=== PATIENT | female | born 1960 | race Caucasian/White ===

== ENCOUNTER 2021-09-19 14:44 | Outpatient (CLI) | payer MEDICARE, SELFPAY ==
--- NOTE | 2021-09-19 14:30 | XR_ITS ---
WS: [id number] Exam: XR KUB [id number] Date/Time of Exam: 09/19/2021 2:30 PM Reason For Exam: NEPHROLITHIASIS Comparison 11/03/2008. No bowel obstruction or free air. No sign of organ enlargement. No calcifications are projected over the renal silhouettes. A vascular stent is noted along the left margin of the L4 vertebra. Nonspecifi c bilateral pelvic calcifications. Bony structures are intact. XR/XR KUB [id number] IMPRESSION: 1. No acute abdominal finding. 2. Additional minor nonemergent findings.
== END 2021-09-19 14:45 | disposition home or self-care (01) ==
PROVIDERS: PCP Physician Assistant; Visit Provider Urology
DX: N20.0 Calculus of kidney (principal)
CPT/HCPCS: 74018; 81003; 87086

== ENCOUNTER → 2021-10-24 09:12 | Outpatient (BNVA) | payer MEDICARE, SELFPAY | PROVIDERS: PCP Physician Assistant; Visit Provider Urology | DX: N39.0 Urinary tract infection, site not specified (principal) | CPT/HCPCS: 81003 ==

== ENCOUNTER → 2022-01-23 08:08 | Outpatient (BNVA) | payer MEDICARE, SELFPAY | PROVIDERS: PCP Physician Assistant; Visit Provider Urology | DX: N39.0 Urinary tract infection, site not specified (principal) | CPT/HCPCS: 81003 ==

== ENCOUNTER → 2022-03-27 14:26 | Outpatient (BNVA) | payer MEDICARE, SELFPAY | PROVIDERS: PCP Physician Assistant; Visit Provider Urology | DX: N20.0 Calculus of kidney (principal); N39.0 Urinary tract infection, site not specified; R31.0 Gross hematuria | CPT/HCPCS: 81003; 99214 ==

== ENCOUNTER → 2022-06-24 14:09 | Outpatient (BNVA) | payer MEDICARE, SELFPAY | PROVIDERS: PCP Physician Assistant; Visit Provider Urology | DX: N20.0 Calculus of kidney (principal); N30.80 Other cystitis without hematuria | CPT/HCPCS: 99213 ==

== ENCOUNTER → 2022-07-10 08:44 | Outpatient (BNVA) | payer MEDICARE, SELFPAY | PROVIDERS: PCP Physician Assistant; Visit Provider Urology | DX: N39.0 Urinary tract infection, site not specified (principal); N30.80 Other cystitis without hematuria; N20.0 Calculus of kidney | CPT/HCPCS: 81003 ==

== ENCOUNTER → 2022-09-30 09:49 | Outpatient (BNVA) | payer MEDICARE, SELFPAY | PROVIDERS: PCP Physician Assistant; Visit Provider Urology | DX: N30.80 Other cystitis without hematuria (principal) | CPT/HCPCS: 81003; 99213 ==

== ENCOUNTER → 2022-12-16 09:43 | Outpatient (BNVA) | payer MEDICARE, SELFPAY | PROVIDERS: PCP Physician Assistant; Visit Provider Urology | DX: N30.80 Other cystitis without hematuria (principal) | CPT/HCPCS: 99213 ==

== ENCOUNTER 2025-04-04 08:54 | Emergency (ER) | payer MEDICARE, SELFPAY ==
[2025-04-04 08:55] VITALS: BP 113/78; PULSE 79; RESP 17; TEMP 36.5; O2SAT 96; BMI 28.5
--- NOTE | 2025-04-04 09:10 | ED_ITS ---
Documented by User: NESSA Spears 04/04/25 13:42 HPI - Neuro Symptoms/Deficit 2 General: Chief Complaint: Neuro Symptoms/Deficit Stated Complaint: Weakness, Headache Time Seen by Provider: 04/04/25 08:57 Source: patient and other (assisted report) Mode of arrival: EMS Limitations: no limitations History of Present Illness: Patient is a 65-year-old female presents to ED today from her assisted for evaluation of worsening strokelike symptoms. Patient states she had a stroke on March 01 and then had another stroke following this. Both strokes are managed at [facility] in [place] and we currently do not have these records. According to assisted report, patient does have residual left-sided deficits from these. She was living at home prior to the CVAs but is now residing in a assisted. According to assisted report, she does have some residual left facial droop, slurred speech, and left-sided weakness. [facility] staff states she was reportedly at her normal/baseline since the CVAs around 0750 this morning but then began complaining of an acute onset headache in assisted staff noted that her stroke symptoms on the left had acutely worsened. Patient is unsure whether she received TNK while at [facility]. I directly spoke to Gwen at patient's assisted who confirms patient has had left sided facial droop, left arm/leg weakness, slurred speech, and problems with balance since they've had her. She has also had issues with headaches. They said headache was worse this morning and her deficits seemed worse. She does not report any new symptoms-possibly her gait was worse than normal. Daughter later showed up and provided further history. She confirms two previous strokes within the last month-neither one of which were in the window for TNK. She states she was with her mother around 0650 this morning and witnessed her walk to the cafeteria at [facility] and was fairly stable at that time. Daughter felt like her residual deficits were at baseline then. She is with her now in the ED and feels her speech is more slurred and aphasic that what it was at 0650 this morning and states her gait is certainly worse stating that she is very wobbly just like she was when she had her second stroke . Onset (ago): hour(s) Timing confirmed by: other (assisted staff) Location: speech, left face, left arm, left leg and ataxia History of same: Yes Severity: severe Relieving factors: none Exacerbating factors: none Associated symptoms: Reports headache(s); Deny chest pain, malaise or vomiting Treatments Prior to Arrival: none Related Data Home Medications ?Medication ?Instructions ?Recorded ?Confirmed montelukast 10 mg tablet 10 mg PO QDAY 11/04/1904/04 (Singulair) magnesium 250 mg tablet 250 mg PO DAILY 09/19/21 amlodipine 2.5 mg tablet 2.5 mg PO DAILY 10/24/21 aspirin 81 mg tablet,delayed 81 mg PO DAILY 10/24/21 0 04/04/25 release metoprolol succinate 50 mg 50 mg PO DAILY 10/24/21 tablet,extended release 24 hr acetaminophen 650 mg 650 mg PO Q6H 04/04/2504/04 tablet,extended release (Tylenol 8 Hour) atorvastatin 80 mg tablet 80 mg PO DAILY 04/04/2503/13 clopidogrel 75 mg tablet 75 mg PO DAILY 04/04/2503/13 meclizine 25 mg tablet 25 mg PO Q8H PRN Dizziness O r 04/04/25 04/04/25 Vertigo pantoprazole 40 mg tablet,delayed 40 mg PO DAILY 04/0404/04/25 release pioglitazone 30 mg tablet 30 mg PO DAILY 04/04/2503/13 ropinirole 0.5 mg tablet 0.5 mg PO BEDTIME 04/04/25 0 04/04/25 vitamin B complex-folic acid ER 1 tab PO DAILY 5 04/04/25 400 mcg tablet,extended release Allergies Allergy/AdvReac Type Severity Reaction Status Date / Time NSAIDS (Non-Steroidal Allergy Unknown UNKNOWN Verified 12/16/22 09:54 Anti-Inflamma acetaminophen (From Fioricet) Allergy ITCHING, Verified 12/16/22 09:54 REDNESS, SWELLING albuterol Allergy ITCHING, Verified 12/16/22 09:54 REDNESS, SWELLING benzonatate (From Tessalon Allergy ITCHING, Verified 12/16/22 09:54 Perles) REDNESS, SWELLING butalbital (From Fioricet) Allergy ITCHING, Verified 12/16/22 09:54 REDNESS, SWELLING caffeine (From Fioricet) Allergy ITCHING, Verified 12/16/22 09:54 REDNESS, SWELLING celecoxib (From Celebrex) Allergy ITCHING, Verified 12/16/22 09:54 REDNESS, SWELLING cephalexin (From Keflex) Allergy ITCHING, Verified 12/16/22 09:54 REDNESS, SWELLING codeine Allergy Unknown Verified 12/16/22 09:54 diphenhydramine (From Allergy REDNESS Verified 12/16/22 09:54 Benadryl) AND ITCHING ezetimibe (From Zetia) Allergy ITCHING, Verified 12/16/22 09:54 REDNESS, SWELLING gabapentin Allergy ITCHING, Verified 12/16/22 09:54 REDNESS, SWELLING gemfibrozil Allergy ITCHING, Verified 12/16/22 09:54 REDNESS, SWELLING ibuprofen Allergy ITCHING Verified 12/16/22 09:54 ipratropium Allergy ITCHING, Verified 12/16/22 09:54 REDNESS, SWELLING ketorolac Allergy ITCHING, Verified 12/16/22 09:54 REDNESS, SWELLING latex Allergy ITCHING, Verified 12/16/22 09:54 REDNESS, SWELLING lidocaine Allergy ITCHING, Verified 12/16/22 09:54 REDNESS, SWELLING morphine Allergy SWELLING Verified 12/16/22 09:54 nitroglycerin Allergy ITCHING, Verified 12/16/22 09:54 REDNESS, SWELLING ondansetron (From Zofran) Allergy ITCHING, Verified 12/16/22 09:54 REDNESS, SWELLING oxycodone Allergy ITCHING, Verified 12/16/22 09:54 REDNESS, SWELLING prednisolone Allergy SWELLING Verified 12/16/22 09:54 AND REDNESS procaine (From Novocain) Allergy ITCHING, Verified 12/16/22 09:54 REDNESS, SWELLING rosuvastatin (From Crestor) Allergy ITCHING, Verified 12/16/22 09:54 REDNESS, SWELLING tramadol Allergy ITCHING, Verified 12/16/22 09:54 REDNESS, SWELLING venlafaxine (From Effexor) Allergy ITCHING, Verified 12/16/22 09:54 REDNESS, SWELLING Review of Systems 2 Const: Denies: fever(s), chills, body aches, fatigue or malaise Card: Denies: chest pain Resp: Denies: dyspnea GI: Denies: abdominal pain, vomiting or diarrhea : Denies: flank pain, dysuria or hematuria Musc: Denies: neck pain, back pain, extremity pain, extremity swelling, joint pain or joint swelling Skin/Breast: Denies: rash Neuro: Reports: headache(s), weakness in extremities, lack of coordination, difficulty walking and Slurred speech present; Denies: confusion, behavioral changes, difficulty communicating thoughts or seizure-like activity PFSH ED 2 PFSH: Medical History Nephrolithiasis Gross hematuria Recurrent UTI Long history of RUTIs c/w CHRONIC CYSTITIS Family History Father , AT AGE 53 Heart disease Mother , AT 59 Acute Crohn's disease Other Acute rheumatoid arthritis Crohn's disease Social History Smoking and tobacco/nicotine status: current every day tobacco/nicotine user cigarettes Packs smoked per day: 1 Quit status (tobacco/nicotine): not considering quitting Alcohol intake: never Substance/Drug Use: never Marital status: / Current occupational status: disabled NIH stroke score 2 NIHSS: Level Of Consciousness - 1a: 0 Level Of Consciousness Questions - 1b: Both Correct Level Of Consciousness Commands - 1c: Both Correct Best Gaze - 2: Normal Visual Antony - 3: No Visual Loss Facial Palsy - 4: Minor Paralysis Motor Arm Right - 5: No Drift Motor Arm Left - 5: No 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 Pantoja-coming to evaluate patient here in ED; we are still awaiting records from [facility] Vital Signs: Vital signs: Vital Signs Temperature 97.7 F 04/04/25 08:55 Pulse Rate 69 04/04/25 14:06 Respiratory Rate 16 04/04/25 14:04 Blood Pressure 128/75 04/04/25 14:06 Pulse Oximetry 96 04/04/25 14:06 Oxygen Delivery Me thod Room Air 04/04/25 14:04 MDM - Neuro Symptoms/Deficit Medical Decision Making Patient's care is difficult as she does have obvious left-sided deficits from previous CVAs. It is hard to differentiate if patient has any new focal deficits or if this is just an increase of her residual deficits possibly due to dehydration, infection, not sleeping well, etc. She will not be a TNK candidate given her severe stroke within the last month. I have spoken to Dr. New on her and we will go ahead and call a stroke alert and have Dr. Pantoja come evaluate her as I appreciate her evaluation and insight into appropriate management here. We are still awaiting [facility] records despite having called them twice. Dr. Pantoja did consult on patient. She is not a candidate for TNK. Patient is already wearing a monitor to evaluate for atrial fibrillation. She is already at a nursing/assisted living facility and receiving physical therapy. She already has neurology follow-up scheduled for April 12. Dr. Pantoja was graciously willing to work her into her clinic here however family would like to continue follow-up at [facility]. Dr. Pantoja reviewed CT head and CTA head and neck performed on today's visit. Patient is already on plavix/statin. Medical Records I reviewed the patient's medical records. Lab Data I reviewed the patient's lab results. 04/04/25 09:26 04/04/25 09:26 Radiology Impressions Chest X-Ray 04/04/25 09:14 IMPRESSION: 1. Negative chest. Head CT 04/04/25 09:14 IMPRESSION: 1. Focal area of decreased attenuation RIGHT paramedial frontal lobe abutting the corpus callosum measures 1.6 x 2.4 cm. Slight extension across the midline. Neoplasm needs to be excluded. Patient does have a history of prior recent infarcts. No comparison studies at [facility]. 2. High density focus measuring 4.3 mm in the mid anterior corpus callosum needs to be further evaluated. Neoplasm, blood or primary lymphoma should be considered. 3. Recommend MRI brain with and without contrast. Head/Neck CTA 04/04/25 10:09 IMPRESSION: 1. No high-grade cervical carotid artery stenosis. Less than 50% stenosis cervical carotid arteries. 2. Diffuse narrowing of the RIGHT vertebral artery. This may be normal congenital variation for this patient but dissection should be considered due to ongoing history of multiple recent strokes. No evidence for luminal thrombus identified surrounding the artery by CT. RIGHT vertebral artery can be further evaluated by carotid ultrasound to evaluate for an intimal flap or MR angiogram carotid arteries. 3. No alturas of [place] occlusion or aneurysm. Laboratory Results WBC 8.84 10^3/uL (3.29-11.43) 04/04/25 09: RBC 4.51 10^6/uL (3.85-5.65) 04/04/25 09:26 Hgb 14.70 g/dL (11.27-16.99) 04/04/25 09:26 Hct 43.4 % (36-47) 04/04/25 09: MCV 96.2 fl (85-98) 04/04/25 09: MCH 32.6 pg (27-33) 04/04/25 09: MCHC 33.9 g/dL (30-55) 04/04/25 09: RDW 11.9 % (12.1-15.1) L 04/04/25 09:26 Plt Count 268 10^3/cmm (157-399) 04/04/25 09: MPV 8.6 fL (7.4-10.4) 04/04/25 09: Neut % (Auto) 62.9 % 04/04/25 09: Lymph % (Auto) 19.7 % 04/04/25 09:26 [place] % (Auto) 12.8 % 04/04/25 09: Eos % (Auto) 3.1 % 04/04/25: Baso % (Auto) 0.8 % 04/04/25 09: Neut # (Auto) 5.57 10^3/uL (1.8-7.7) 04/04/25 09:26 Lymph # (Auto) 1.7 10^3/uL (0.8-4.8) 04/04/25 09: [place] # (Auto) 1.1 10^3/uL (0.2-0.9) H 04/04/25 09:26 Eos # (Auto) 0.3 10^3/uL (0.0-0.8) 04/04/25 09:26 Baso # (Auto) 0.1 10^3/uL (0.0-0.1) 04/04/25 09:26 Nucleated RBC % (auto) 0 % 04/04/25 09:26 Nucleated RBCs # 0.0 /100WBC 04/04/25 09:26 Sodium 140 mmol/L (136-145) 04/04/25 09:26 Potassium 4.0 mmol/L (3.5-5.1) 04/04/25 09:26 Chloride 101 mmol/L (98-107) 04/04/25 09:26 Carbon Dioxide 28 mmol/L (22-29) 04/04/25 09:26 Anion Gap 15.0 (5-19) 04/04/25 09:26 BUN 13 mg/dL (8-23) 04/04/25 09:26 Creatinine 0.6 mg/dL (0.5-0.9) 04/04/25 09:26 GFR Calculation 101.0 mL/min (90-130) 04/04/25 09:26 Glucose 200 mg/dL (65-115) H 04/04/25 09:26 Calculated Osmolality 296 mOsm/kg (285-295) H 04/04/25 09:26 Calcium 9.2 mg/dL (8.5-10.5) 04/04/25 09:26 Total Bilirubin 1.7 mg/dL (0.15-1.2) H 04/04/25 09:26 AST 17 U/L (0-32) 04/04/25 09:26 ALT 30 U/L (0-33) 04/04/25 09:26 Alkaline Phosphatase 69 U/L (35-105) 04/04/25 09:26 Total Protein 6.3 g/dL (6.6-8.7) L 04/04/25 09:26 Albumin 3.9 g/dL (3.5-5.2) 04/04/25 09:26 Globulin 2.4 g/dL (1.3-4.6) 04/04/25 09:26 Urine Color Yellow (Yellow) 04/04/25 11:50 Urine Appearance Clear (CLEAR) 04/04/25 11:50 Urine pH 7.0 (5-7) 04/04/25 11:50 Ur Specific [place] 1.068 (1.005-1.030) H 04/04/25 11:50 Urine Protein Negative (Negative) 04/04/25 11:50 Urine Glucose (UA) Negative (Normal) 04/04/25 11:50 Urine Ketones Negative (Negative) 04/04/25 11:50 Urine Blood Negative (Negative) 04/04/25 11:50 Urine Nitrate Negative (Negative) 04/04/25 11:50 Urine Bilirubin Negative (Negative) 04/04/25 11:50 Urine Urobilinogen 0.2 mg/dL (Negative) 04/04/25 11:50 Ur Leukocyte Esterase Negative (Negative) 04/04/25 11:50 Urine RBC 0-2 /hpf (0-2) 04/04/25 11:50 Urine WBC 0-5 /hpf (0-5) 04/04/25 11:50 Ur Squamous Epith Cells 0-5 /hpf (0-5) 04/04/25 11:50 Amorphous Sediment Not Reportable 04/04/25 11:50 Urine Bacteria None seen /hpf (NONE) 04/04/25 11:50 Hyaline Casts 0.40 /lpf 04/04/25 11:50 All radiology interpretation(s) finalized by discharge Discharge Plan Discharge Patient Disposition: Home Clinical Impression: Acute right arterial ischemic stroke, middle cerebral artery (MCA) Condition: Stable Prescriptions: No Action montelukast [Singulair] 10 mg tablet 10 mg PO QDAY amlodipine 2.5 mg tablet 2.5 mg PO DAILY aspirin 81 mg tablet,delayed release (DR/EC) 81 mg PO DAILY metoprolol succinate 50 mg tablet extended release 24 hr 50 mg PO DAILY magnesium 250 mg tablet 250 mg PO DAILY atorvastatin 80 mg tablet 80 mg PO DAILY clopidogrel 75 mg Tablet 75 mg PO DAILY acetaminophen [Tylenol 8 Hour] 650 mg Tablet Extended Release 650 mg PO Q6H meclizine 25 mg Tablet 25 mg PO Q8H PRN (Reason: Dizziness Or Vertigo) pantoprazole 40 mg Tablet,Delayed Release (Dr/Ec) 40 mg PO DAILY ropinirole 0.5 mg Tablet 0.5 mg PO BEDTIME pioglitazone 30 mg Tablet 30 mg PO DAILY vitamin B complex-folic acid 400 mcg Tablet Extended Release 1 tab PO DAILY Discharge Orders: Discharge ED (Routine); Ordered 04/04/25 Ordered By: Jojo Solis Referrals: Jocelynn Hutson PA-C [Primary Care Provider, Unknown] Patient Instructions: Patient Portal & Annette Instructions Activity Restrictions/Additional Instructions: As we discussed, you would not like to follow-up with neurology here. You would like to keep your appointment at [facility] scheduled for early April. Print Language: Prydeinig Coding Level of Care Code ED Senior Counsel for Chg Fwd Documented by User: Sharad New, 04/04/25 16:13 HPI - Neuro Symptoms/Deficit 2 General: Chief Complaint: Neuro Symptoms/Deficit Stated Complaint: Weakness, Headache Time Seen by Provider: 04/04/25 08:57 Related Data Home Medications ?Medication ?Instructions ?Recorded ?Confirmed montelukast 10 mg tablet 10 mg PO QDAY 11/04/1904/04 (Singulair) magnesium 250 mg tablet 250 mg PO DAILY 09/19/21 amlodipine 2.5 mg tablet 2.5 mg PO DAILY 10/24/21 aspirin 81 mg tablet,delayed 81 mg PO DAILY 10/24/21 0 04/04/25 release metoprolol succinate 50 mg 50 mg PO DAILY 10/24/21 tablet,extended release 24 hr acetaminophen 650 mg 650 mg PO Q6H 04/04/2504/04 tablet,extended release (Tylenol 8 Hour) atorvastatin 80 mg tablet 80 mg PO DAILY 04/04/2503/13 clopidogrel 75 mg tablet 75 mg PO DAILY 04/04/2503/13 meclizine 25 mg tablet 25 mg PO Q8H PRN Dizziness O r 04/04/25 04/04/25 Vertigo pantoprazole 40 mg tablet,delayed 40 mg PO DAILY 04/0404/04/25 release pioglitazone 30 mg tablet 30 mg PO DAILY 04/04/2503/13 ropinirole 0.5 mg tablet 0.5 mg PO BEDTIME 04/04/25 0 04/04/25 vitamin B complex-folic acid ER 1 tab PO DAILY 5 04/04/25 400 mcg tablet,extended release Allergies Allergy/AdvReac Type Severity Reaction Status Date / Time NSAIDS (Non-Steroidal Allergy Unknown UNKNOWN Verified 12/16/22 09:54 Anti-Inflamma acetaminophen (From Fioricet) Allergy ITCHING, Verified 12/16/22 09:54 REDNESS, SWELLING albuterol Allergy ITCHING, Verified 12/16/22 09:54 REDNESS, SWELLING benzonatate (From Tessalon Allergy ITCHING, Verified 12/16/22 09:54 Perles) REDNESS, SWELLING butalbital (From Fioricet) Allergy ITCHING, Verified 12/16/22 09:54 REDNESS, SWELLING caffeine (From Fioricet) Allergy ITCHING, Verified 12/16/22 09:54 REDNESS, SWELLING celecoxib (From Celebrex) Allergy ITCHING, Verified 12/16/22 09:54 REDNESS, SWELLING cephalexin (From Keflex) Allergy ITCHING, Verified 12/16/22 09:54 REDNESS, SWELLING codeine Allergy Unknown Verified 12/16/22 09:54 diphenhydramine (From Allergy REDNESS Verified 12/16/22 09:54 Benadryl) AND ITCHING ezetimibe (From Zetia) Allergy ITCHING, Verified 12/16/22 09:54 REDNESS, SWELLING gabapentin Allergy ITCHING, Verified 12/16/22 09:54 REDNESS, SWELLING gemfibrozil Allergy ITCHING, Verified 12/16/22 09:54 REDNESS, SWELLING ibuprofen Allergy ITCHING Verified 12/16/22 09:54 ipratropium Allergy ITCHING, Verified 12/16/22 09:54 REDNESS, SWELLING ketorolac Allergy ITCHING, Verified 12/16/22 09:54 REDNESS, SWELLING latex Allergy ITCHING, Verified 12/16/22 09:54 REDNESS, SWELLING lidocaine Allergy ITCHING, Verified 12/16/22 09:54 REDNESS, SWELLING morphine Allergy SWELLING Verified 12/16/22 09:54 nitroglycerin Allergy ITCHING, Verified 12/16/22 09:54 REDNESS, SWELLING ondansetron (From Zofran) Allergy ITCHING, Verified 12/16/22 09:54 REDNESS, SWELLING oxycodone Allergy ITCHING, Verified 12/16/22 09:54 REDNESS, SWELLING prednisolone Allergy SWELLING Verified 12/16/22 09:54 AND REDNESS procaine (From Novocain) Allergy ITCHING, Verified 12/16/22 09:54 REDNESS, SWELLING rosuvastatin (From Crestor) Allergy ITCHING, Verified 12/16/22 09:54 REDNESS, SWELLING tramadol Allergy ITCHING, Verified 12/16/22 09:54 REDNESS, SWELLING venlafaxine (From Effexor) Allergy ITCHING, Verified 12/16/22 09:54 REDNESS, SWELLING PFSH ED 2 PFSH: Medical History Nephrolithiasis Gross hematuria Recurrent UTI Long history of RUTIs c/w CHRONIC CYSTITIS Family History Father , AT AGE 53 Heart disease Mother , AT 59 Acute Crohn's disease Other Acute rheumatoid arthritis Crohn's disease Social History Smoking and tobacco/nicotine status: current every day tobacco/nicotine user cigarettes Packs smoked per day: 1 Quit status (tobacco/nicotine): not considering quitting Alcohol intake: never Substance/Drug Use: never Marital status: / Current occupational status: disabled NIH stroke score 2 Score: Total Score: 7 Course 2 Vital Signs: Vital signs: Vital Signs Temperature 97.7 F 04/04/25 08:55 Pulse Rate 69 04/04/25 14:06 Respiratory Rate 16 04/04/25 14:04 Blood Pressure 128/75 04/04/25 14:06 Pulse Oximetry 96 04/04/25 14:06 Oxygen Delivery Me thod Room Air 04/04/25 14:04 MDM - Neuro Symptoms/Deficit Medical Decision Making Patient's care is difficult as she does have obvious left-sided deficits from previous CVAs. It is hard to differentiate if patient has any new focal deficits or if this is just an increase of her residual deficits possibly due to dehydration, infection, not sleeping well, etc. She will not be a TNK candidate given her severe stroke within the last month. I have spoken to Dr. New on her and we will go ahead and call a stroke alert and have Dr. Pantoja come evaluate her as I appreciate her evaluation and insight into appropriate management here. We are still awaiting [facility] records despite having called them twice. Dr. Pantoja did consult on patient. She is not a candidate for TNK. Patient is already wearing a monitor to evaluate for atrial fibrillation. She is already at a nursing/assisted living facility and receiving physical therapy. She already has neurology follow-up scheduled for April 12. Dr. Pantoja was graciously willing to work her into her clinic here however family would like to continue follow-up at [facility]. Dr. Pantoja reviewed CT head and CTA head and neck performed on today's visit. Patient is already on plavix/statin. Chart reviewed and patient discussed with midlevel. Agree with assessment and plan. Lab Data 04/04/25 09:26 04/04/25 09:26 Radiology Impressions Chest X-Ray 04/04/25 09:14 IMPRESSION: 1. Negative chest. Head CT 04/04/25 09:14 IMPRESSION: 1. Focal area of decreased attenuation RIGHT paramedial frontal lobe abutting the corpus callosum measures 1.6 x 2.4 cm. Slight extension across the midline. Neoplasm needs to be excluded. Patient does have a history of prior recent infarcts. No comparison studies at [facility]. 2. High density focus measuring 4.3 mm in the mid anterior corpus callosum needs to be further evaluated. Neoplasm, blood or primary lymphoma should be considered. 3. Recommend MRI brain with and without contrast. Head/Neck CTA 04/04/25 10:09 IMPRESSION: 1. No high-grade cervical carotid artery stenosis. Less than 50% stenosis cervical carotid arteries. 2. Diffuse narrowing of the RIGHT vertebral artery. This may be normal congenital variation for this patient but dissection should be considered due to ongoing history of multiple recent strokes. No evidence for luminal thrombus identified surrounding the artery by CT. RIGHT vertebral artery can be further evaluated by carotid ultrasound to evaluate for an intimal flap or MR angiogram carotid arteries. 3. No alturas of [place] occlusion or aneurysm. Laboratory Results WBC 8.84 10^3/uL (3.29-11.43) 04/04/25 09: RBC 4.51 10^6/uL (3.85-5.65) 04/04/25 09:26 Hgb 14.70 g/dL (11.27-16.99) 04/04/25 09: Hct 43.4 % (36-47) 04/04/25 09:26 MCV 96.2 fl (85-98) 04/04/25 09: MCH 32.6 pg (27-33) 04/04/25 09: MCHC 33.9 g/dL (30-55) 04/04/25 09: RDW 11.9 % (12.1-15.1) L 04/04/25 09: Plt Count 268 10^3/cmm (157-399) 04/04/25 09: MPV 8.6 fL (7.4-10.4) 04/04/25 09:26 Neut % (Auto) 62.9 % 04/04/25 09: Lymph % (Auto) 19.7 % 04/04/25 09: [place] % (Auto) 12.8 % 04/04/25 09: Eos % (Auto) 3.1 % 04/04/25 09: Baso % (Auto) 0.8 % 04/04/25 09: Neut # (Auto) 5.57 10^3/uL (1.8-7.7) 04/04/25 09:26 Lymph # (Auto) 1.7 10^3/uL (0.8-4.8) 04/04/25 09: [place] # (Auto) 1.1 10^3/uL (0.2-0.9) H 04/04/25 09:26 Eos # (Auto) 0.3 10^3/uL (0.0-0.8) 04/04/25 09: Baso # (Auto) 0.1 10^3/uL (0.0-0.1) 04/04/25 09: Nucleated RBC % (auto) 0 % 04/04/25 09: Nucleated RBCs # 0.0 /100WBC 04/04/25 09: Sodium 140 mmol/L (136-145) 04/04/25 09: Potassium 4.0 mmol/L (3.5-5.1) 04/04/25 09: Chloride 101 mmol/L (98-107) 04/04/25: Carbon Dioxide 28 mmol/L (22-29) 04/04/25 09: Anion Gap 15.0 (5-19) 04/04/25 09:26 BUN 13 mg/dL (8-23) 04/04/25 09: Creatinine 0.6 mg/dL (0.5-0.9) 04/04/25 09:26 GFR Calculation 101.0 mL/min (90-130) 04/04/25 09:26 Glucose 200 mg/dL (65-115) H 04/04/25 09:26 Calculated Osmolality 296 mOsm/kg (285-295) H 04/04/25 09:26 Calcium 9.2 mg/dL (8.5-10.5) 04/04/25 09: Total Bilirubin 1.7 mg/dL (0.15-1.2) H 04/04/25 09: AST 17 U/L (0-32) 04/04/25 09: ALT 30 U/L (0-33) 04/04/25 09: Alkaline Phosphatase 69 U/L (35-105) 04/04/25 09:26 Total Protein 6.3 g/dL (6.6-8.7) L 04/04/25 09:26 Albumin 3.9 g/dL (3.5-5.2) 04/04/25 09: Globulin 2.4 g/dL (1.3-4.6) 04/04/25 09:26 Urine Color Yellow (Yellow) 04/04/25 11:50 Urine Appearance Clear (CLEAR) 04/04/25 11:50 Urine pH 7.0 (5-7) 04/04/25 11:50 Ur Specific [place] 1.068 (1.005-1.030) H 04/04/25 11:50 Urine Protein Negative (Negative) 04/04/25 11:50 Urine Glucose (UA) Negative (Normal) 04/04/25 11:50 Urine Ketones Negative (Negative) 04/04/25 11:50 Urine Blood Negative (Negative) 04/04/25 11:50 Urine Nitrate Negative (Negative) 04/04/25 11:50 Urine Bilirubin Negative (Negative) 04/04/25 11:50 Urine Urobilinogen 0.2 mg/dL (Negative) 04/04/25 11:50 Ur Leukocyte Esterase Negative (Negative) 04/04/25 11:50 Urine RBC 0-2 /hpf (0-2) 04/04/25 11:50 Urine WBC 0-5 /hpf (0-5) 04/04/25 11:50 Ur Squamous Epith Cells 0-5 /hpf (0-5) 04/04/25 11:50 Amorphous Sediment Not Reportable 04/04/25 11:50 Urine Bacteria None seen /hpf (NONE) 04/04/25 11:50 Hyaline Casts 0.40 /lpf 04/04/25 11:50 Discharge Plan Discharge Patient Disposition: Home Clinical Impression: Acute right arterial ischemic stroke, middle cerebral artery (MCA) Condition: Stable Prescriptions: No Action montelukast [Singulair] 10 mg tablet 10 mg PO QDAY amlodipine 2.5 mg tablet 2.5 mg PO DAILY aspirin 81 mg tablet,delayed release (DR/EC) 81 mg PO DAILY metoprolol succinate 50 mg tablet extended release 24 hr 50 mg PO DAILY magnesium 250 mg tablet 250 mg PO DAILY atorvastatin 80 mg tablet 80 mg PO DAILY clopidogrel 75 mg Tablet 75 mg PO DAILY acetaminophen [Tylenol 8 Hour] 650 mg Tablet Extended Release 650 mg PO Q6H meclizine 25 mg Tablet 25 mg PO Q8H PRN (Reason: Dizziness Or Vertigo) pantoprazole 40 mg Tablet,Delayed Release (Dr/Ec) 40 mg PO DAILY ropinirole 0.5 mg Tablet 0.5 mg PO BEDTIME pioglitazone 30 mg Tablet 30 mg PO DAILY vitamin B complex-folic acid 400 mcg Tablet Extended Release 1 tab PO DAILY Discharge Orders: Discharge ED (Routine); Ordered 04/04/25 Ordered By: Jojo Solis Referrals: Jocelynn Hutson PA-C [Primary Care Provider, Unknown] Patient Instructions: Patient Portal & Annette Instructions Activity Restrictions/Additional Instructions: As we discussed, you would not like to follow-up with neurology here. You would like to keep your appointment at [facility] scheduled for early April. Print Language: Prydeinig Coding Level of Care Code ED Senior Counsel for Nova Monk
--- NOTE | 2025-04-04 09:14 | CT_ITS ---
WS: [id number] CT HEAD NONCONTRAST HISTORY: headache, previous recent stroke TECHNIQUE: Contiguous axial imaging performed through the brain. Bone and soft tissue windows. Sagittal and coronal reformats reviewed. All CT scans at [facility] use at least one of these dose optimization techniques: automated exposure control; mA and/or kV adjustment per patient size (includes targeted exams where dose is matched to clinical indication); or iterative reconstruction. DLP: 1024.68 mGy.cm COMPARISON: Prior MRI brain 2014. Extra-axial fluid collections or large areas of hemorrhage. There is an area of decreased attenuation in the RIGHT paramedian frontal lobe abutting the corpus callosum and the interhemispheric falx. Area of decreased signal measures 1.6 x 2.4 cm. There is slight mass effect upon the midline structures and bowing of the falx to the LEFT. There is a tiny focus of increased density along the midline associated with the corpus callosum. Focal increased density measures 4.3 mm. Minimal atrophy and additional small vessel disease. Ventricles: Normal size with no hydrocephalus. Paranasal sinuses: As visualized are clear. Mastoid air cells: Small amount of fluid LEFT mastoid air cells. Calvarium and scalp: Skull is intact with no soft tissue edema or swelling. CT/CT head wo con* [id number] IMPRESSION: 1. Focal area of decreased attenuation RIGHT paramedial frontal lobe abutting the corpus callosum measures 1.6 x 2.4 cm. Slight extension across the midline. Neoplasm needs to be excluded. Patient does have a history of prior recent inf arcts. No comparison studies at [facility]. 2. High density focus measuring 4.3 mm in the mid anterior corpus callosum nee ds to be further evaluated. Neoplasm, blood or primary lymphoma should be consi dered. 3. Recommend MRI brain with and without contrast.
--- NOTE | 2025-04-04 09:14 | XR_ITS ---
WS: [id number] Exam: XR chest 1V portable [id number] Date/Time of Exam: 04/04/2025 9:14 AM Reason For Exam: chest pain Comparison 06/23/2014. Lungs are fully expanded and clear. Normal cardiomediastinal silhouette. Bony structures are intact. No pleural effusion. XR/XR chest 1V portable [id number] IMPRESSION: 1. Negative chest.
[2025-04-04 09:36] LABS: Basophils # 0.1 10^3/uL (0.0-0.1); Basophils % 0.8 %; Eosinophils # 0.3 10^3/uL (0.0-0.8); Eosinophils % 3.1 %; Hematocrit 43.4 % (36-47); Lymphocytes # 1.7 10^3/uL (0.8-4.8); Lymphocytes % 19.7 %; Mean Corpuscular HGB Conc 33.9 g/dL (30-55); Mean Corpuscular Hemoglobin 32.6 pg (27-33); Mean Corpuscular Volume 96.2 fl (85-98); Mean Platelet Volume 8.6 fL (7.4-10.4); Monocytes # 1.1 10^3/uL (0.2-0.9); Monocytes % 12.8 %; Neutrophils # 5.57 10^3/uL (1.8-7.7); Neutrophils % 62.9 %; Nucleated Red Blood Cells % 0 %; Platelet Count 268 10^3/cmm (157-399); Red Blood Count 4.51 10^6/uL (3.85-5.65); Red Cell Distribution Width 11.9 % (12.1-15.1); White Blood Count 8.84 10^3/uL (3.29-11.43)
[2025-04-04] MEDS: sodium chloride 0.9% 1,000 ML 999 ML IV (09:50)
[2025-04-04 09:55] LABS: Alanine Aminotransferase 30 U/L (0-33); Albumin Level 3.9 g/dL (3.5-5.2); Alkaline Phosphatase 69 U/L (35-105); Aspartate Amino Transferase 17 U/L (0-32); Blood Urea Nitrogen 13 mg/dL (8-23); Calcium 9.2 mg/dL (8.5-10.5); Carbon Dioxide 28 mmol/L (22-29); Chloride 101 mmol/L (98-107); Globulin 2.4 g/dL (1.3-4.6); Glucose 200 mg/dL (65-115); Osmolality Calculated 296 mOsm/kg (285-295); Sodium 140 mmol/L (136-145); Total Bilirubin 1.7 mg/dL (0.15-1.2); Total Protein 6.3 g/dL (6.6-8.7)
--- NOTE | 2025-04-04 10:09 | CT_ITS ---
WS: [id number] CT ANGIOGRAM CEREBRAL AND CAROTID ARTERIES HISTORY: stroke like symptoms-acute on chronic? TECHNIQUE: CT angiogram is performed of the carotid and cerebral arteries. During arterial injection imaging is obtained from the skull vertex to the aortic arch in 1.25 mm imaging. Coronal and sagittal reformats are submitted. Additional multi planar reformats of the carotid and cerebral arteries are submitted, MIP imaging also reviewed. NASCET criteria utilized. All CT scans at [facility] use at least one of these dose optimization techniques: automated exposure control; mA and/or kV adjustment per patient size (includes targeted exams where dose is matched to clinical indication); or iterative reconstruction. CONTRAST: Omnipaque 350; 100 mL IV. DLP: 386.76 mGy.cm COMPARISON: Noncontrast CT head 04/04/2025 Carotid Angiogram: Right carotid: Common carotid artery: Arises normally from the innominate artery. No significant plaque or stenosis. Internal carotid artery: Small amount of plaque at the bifurcation with no stenosis. External carotid artery: Patent. Left carotid: Common carotid artery: Arises normally from the aorta. No significant plaque or stenosis. Internal carotid artery: No plaque or stenosis. External carotid artery: Patent. Right vertebral artery: Small caliber throughout its course. RIGHT vertebral artery is patent. Left vertebral artery: Dominant and intact. No stenosis. Subclavian arteries: No stenosis or significant abnormality. Upper thorax: Normal. Thyroid gland: Normal. Osseous structures: Mild cervical spondylosis. CEREBRAL ANGIOGRAM: Intracranial vertebral arteries: Distal RIGHT vertebral artery is small caliber. Normal LEFT vertebral artery. Basilar artery: No significant stenosis or occlusion. No aneurysm. Intracranial Internal carotid arteries: Very slight narrowing through the carotid cavernous sinus and a small amount of plaque. No high-grade stenosis. Middle cerebral arteries: Normal. Anterior cerebral arteries and ACOM: Normal. Posterior cerebral arteries and PCOM's: Normal. Dural venous sinuses are normally enhancing. No enhancement identified within the RIGHT frontal lobe area of decreased attenuation. Mastoid air cells: Normal. Paranasal sinuses: Normal. Calvarium: Normal. CT/CT angio headneck* [id number] IMPRESSION: 1. No high-grade cervical carotid artery stenosis. Less than 50% stenosis cerv ical carotid arteries. 2. Diffuse narrowing of the RIGHT vertebral artery. This may be normal congeni violeta variation for this patient but dissection should be considered due to ongoi ng history of multiple recent strokes. No evidence for luminal thrombus identif ied surrounding the artery by CT. RIGHT vertebral artery can be further evaluat ed by carotid ultrasound to evaluate for an intimal flap or MR angiogram caroti d arteries. 3. No [place] of [place] occlusion or aneurysm.
[2025-04-04] MEDS: iohexol 350 mg/mL 500 mL Btl (per mL) IV (10:22)
--- NOTE | 2025-04-04 10:53 | P.PNCC_ITS ---
Stroke Alert Activation ED Arrival Date: 04/04/25 ED Arrival Time: 08:55 ED Physican at Bedside: 08:57 Last Known Normal/at Baseline: 1-2 hours ago Other Last Known Well Infomation: 65-year-old with a complicated history. Jojo Solis called me as soon as she assessed the patient on arrival to the ER and because the patient had had 2 strokes within the last month she was not a candidate for thrombolytic therapy even though her symptoms started abruptly around 7:00 this morning. After further discussion and review of her CT of the head I agreed to comment see the patient in person. Her problem began on March 07 when she had a fall at home. Her daughter came and found her with left-sided weakness and transported her by private vehicle to [facility] in [place]. She was hospitalized and given a diagnosis of ischemic stroke out of the window for treatment. She was in the hospital for 3 days and transferred to [facility] rehab and from there to [facility]. While she was at rehab she had a second episode of left-sided weakness and was diagnosed with a second stroke in the right hemisphere. She is currently on a monitor looking for atrial fibrillation and the monitor was in place when her symptoms began this morning. We have been trying to get the patient's records from [facility] but so far have not been able to obtain them. She was very independent up until the time of her first stroke. Note that she has many allergies including Crestor. She has a new tremor. Her daughter thinks that her visual field cut is a little more pronounced. Her left-sided numbness is worse than it was. She was walking independently this morning and then was trying to walk with her walker at the time of onset of symptoms at 7 AM. Her speech is more slurred than it was. On examination she has a very high amplitude tremor in the left arm and leg consistent with her dense sensory loss. Stroke Alert Activated by: Jojo Medranoton Stroke Alert Activation Date: 04/04/25 Stroke Alert Activation Time: 10:08 Stroke MD @ Bedside Time: 10:20 NIH Stroke Scale Time: 10:20 NIH stroke score NIHSS: Level Of Consciousness - 1a: 0 Level Of Consciousness Questions - 1b: Both Correct Level Of Consciousness Commands - 1c: Both Correct Best Gaze - 2: Normal Visual Antony - 3: Complete Hemianopia (Sparing the macula) Facial Palsy - 4: Partial Paralysis Motor Arm Right - 5: No Drift Motor Arm Left - 5: Drift Motor Leg Right - 6: No Drift Motor Leg Left - 6: Drift Limb Ataxia - 7: Present In Two Limbs Sensory - 8: Mild To Moderate Loss Best Language - 9: No Aphasia (Severe aprosodia) Dysarthia - 10: Mild/Moderate Dysarthia Extinction And Inattention - 11: 0 Score: Total Score: 10 Stroke Alert Data/Treatment Time to CT of Head: 09:14 CT Impression: I reviewed her CT scan of the head. She has decreased attenuation lesion adjacent to the corpus callosum on the right consistent with an evolving ischemic infarct versus space-occupying lesion. There is high density medially suggesting a small focus of hemorrhage. 1. Focal area of decreased attenuation RIGHT paramedial frontal lobe abutting the corpus callosum measures 1.6 x 2.4 cm. Slight extension across the midline. Neoplasm needs to be excluded. Patient does have a history of prior recent infarcts. No comparison studies at [facility]. 2. High density focus measuring 4.3 mm in the mid anterior corpus callosum needs to be further evaluated. Neoplasm, blood or primary lymphoma should be considered. 3. Recommend MRI brain with and without contrast. CT angiogram was reviewed. She has asymmetry of the vertebral arteries, nothing specific to indicate a dissection. Her stroke is not in the distribution of the right vertebral artery. Right middle cerebral artery distribution of stroke. There is nothing in the intracranial arteries that would suggest vasculitis. 1. No high-grade cervical carotid arter y stenosis. Less than 50% stenosis cervical carotid arteries. 2. Diffuse narrowing of the RIGHT verte bral artery. This may be normal congenital variation for this patient but dissection should be considered due to ongoing history of multiple recent strokes. No evidence for luminal thrombus identified surrounding the artery by CT. RIGHT vertebral artery can be further evaluated by carotid ultrasound to evaluate for an intimal flap or MR angiogram carotid arteries. 3. No [place] of [place] occlusion or ane urysm. Dictated By: Radha Hunt DO tPA Contraindication: tPA Contraindication: Medical contraindication (2 strokes within the past 30 days. Hemorrhagic transformation suggested by her CT) tPA Admin Prior to Arrival: No Patient & Family Educated on: Cause of Stroke, Treament Plan, Prognosis and tPA Risks/Benefits Other Patient & Family Education: I recommended proceeding with MRI as an outpatient and she can have MR angiogram at that time to once again document no evidence of vasculitis. I would be willing to see her in the clinic. Her daughter indicates that she has an appointment with a nurse practitioner at [facility] on April 12 and she may wish to proceed with that rather than pursuing local care. Critical Care Time Critical Care Time: 30 - 74 mins A&P Assessment and plan (1) Acute right arterial ischemic stroke, middle cerebral artery (MCA): Acute right middle cerebral artery stroke manifested by worsening ataxia on the left side and worsening left-sided numbness. She has a subcortical lesion in the distribution of the right middle cerebral artery that is probably an evolving stroke based on its appearance. I would presume that she had a full workup at [facility] during her 3-day stay there. I would advocate for outpatient MRI and MRA just to confirm that she does not have signs of cerebral vasculitis. She is already in process of 30-day monitor to rule out atrial fibrillation. I would presume sleep had a connective tissue workup at [facility] because of her young age and that she had bubble study echocardiogram already done. We have been very ardent we attempting to get her records from [facility] and continue to do so. I will work her into my clinic if needed. I talked with her daughter at length and discussed the alternatives. She knows that the patient is not a candidate for TNK. PDMP PDMP Reviewed: Not Reviewed Coding Level of Care Code Acute Code for Chg Fwd Diagnoses Acute right arterial ischemic stroke, middle cerebral artery (MCA) I63.511
--- NOTE | 2025-04-04 12:08 | ECG_ITS ---
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 Measurements Intervals [place] Rate: 75 P: 59 MD: 182 QRS: 48 QRSD: 89 T: 50 QT: 403 QTc: 450 Interpretive Statements SINUS RHYTHM POSSIBLE LEFT ATRIAL ENLARGEMENT [-0.1mV P-WAVE IN V1/V2] No previous ECG available for comparison Electronically Signed On 04-04-2025 17:30:13 CDT by Sascha Singleton M.D. [email or web address]
[2025-04-04 12:09] LABS: Bilirubin Urine Negative (Negative); Blood Urine Negative (Negative); Glucose Urine UA Negative (Normal); Ketones Urine Negative (Negative); Leukocyte Esterase Urine Negative (Negative); Nitrate Urine Negative (Negative); Protein Urine Negative (Negative); Urine Appearance Clear (CLEAR); Urine Color Yellow (Yellow); Urobilinogen Urine 0.2 mg/dL (Negative)
[2025-04-04 12:14] LABS: Add Urine Microscopic? YES; Bacteria Urine None Seen /hpf; RBC Urine 0-2 /hpf (0-2); Squamous Epithelial Cell Urine 0-5 /hpf (0-5); WBC Urine 0-5 /hpf (0-5)
[2025-04-04 12:16] VITALS: BP 118/62; PULSE 72; RESP 16; O2SAT 98
[2025-04-04 12:17] LABS: Add Urine Culture? No; Specific Gravity, Urine 1.068 (1.005-1.030)
[2025-04-04 14:04] VITALS: BP 128/75; PULSE 69; RESP 16; O2SAT 96
--- NOTE | 2025-04-04 14:04 | PC.NURSE ---
called report to [facility] at 1400.
[2025-04-04 14:06] VITALS: BP 128/75; PULSE 69; O2SAT 96
== END 2025-04-04 14:07 | disposition home or self-care (01) ==
PROVIDERS: Emergency Provider Physician Assistant; PCP Physician Assistant
DX: I63.311 Cerebral infarction due to thrombosis of right middle cerebral artery (principal); I69.354 Hemiplegia and hemiparesis following cerebral infarction affecting left non-dominant side; Z79.02 Long term (current) use of antithrombotics/antiplatelets; Z79.82 Long term (current) use of aspirin; F17.210 Nicotine dependence, cigarettes, uncomplicated
CPT/HCPCS: 36415; 70450; 70496; 70498; 71045; 80053; 81001; 85025; 93005; 99285; J7030